=== PATIENT | male | born 1990 | race Caucasian/White ===

== ENCOUNTER 2019-06-21 15:58 | Emergency (ER) | payer SELFPAY ==
[2019-06-21 16:06] VITALS: BP 112/84
[2019-06-21] MEDS ORDERED: PENICILLIN V POTASSIUM 500 MG TABLET PO ONE (16:17)
[2019-06-21] MEDS ORDERED: OXYCODONE-ACETAMINOPHEN 5-325 MG TABLET PO ONE (16:19)
--- NOTE | 2019-06-21 16:21 | ER Document Report ---
HPI - HPI Time Seen by Provider: 06/21/19 16:09 Pain Level: 4 Notes: 28-year-old male patient presenting to the emergency department chief complaint of left upper dental pain. Patient reports he continues to have drainage from the area. He denies any facial swelling. Denies fever. He is currently undergoing treatment for substance abuse at [facility]. He states that they were unable to give him any medication unless he came to the emergency department for treatment first. Past Medical History - General Information source: Patient - Social History Smoking Status: Current Some Day Smoker Frequency of alcohol use: None Drug Abuse: Methamphetamine Family History: Reviewed & Not Pertinent Patient has suicidal ideation: No Patient has homicidal ideation: No - Medical History Medical History: Negative Surgical Hx: Negative Vertical Provider Document - CONSTITUTIONAL Notes: PHYSICAL EXAMINATION: GENERAL: Well-appearing, well-nourished and in no acute distress. HEAD: Atraumatic, normocephalic. EYES: Pupils equal round extraocular movements intact, conjunctiva are normal. ENT: Nares patent, erythema and swelling noted to left upper gumline, no isaac abscess, no evidence of Steve's angina, no trismus. NECK: Normal range of motion LUNGS: No respiratory distress Musculoskeletal: Normal range of motion NEUROLOGICAL: Normal speech, normal gait. PSYCH: Normal mood, normal affect. SKIN: Warm, Dry, normal turgor, no rashes or lesions noted. Course - Re-evaluation Re-evalutation: Presentation is most consistent with likely an infected tooth. Airway is patent. Vitals within normal limits. Patient is able swallow without any difficulty. There is no significant facial swelling. No evidence of Steve angina, apical abscess, or airway obstruction. Patient will be started on antibiotics. I've instructed to follow-up with dentistry as earliest ability for definitive management. At this time will discharge with return precautions and follow-up recommendations. Verbal discharge instructions given a the bedside and opportunity for questions given. Medication warnings reviewed. Patient is in agreement with this plan and has verbalized understanding of return precautions and the need for primary care follow-up in the next 24-72 hours. - Vital Signs Vital signs: Temp Pulse Resp BP Pulse Ox 97.6 F 98 112/84 98 06/21/19 16:03 06/21/19 16:03 06/21/19 16:03 06/21/19 16:03 Discharge - Discharge Clinical Impression: Dental infection Condition: Stable Disposition: HOME, SELF-CARE Additional Instructions: Please take medication as prescribed. [facility] should have this medication to give you. Take Tylenol or ibuprofen for pain. Follow-up with a dentist as soon as you are done with your detox center treatment. Prescriptions: Amoxicillin Trihydrate [Amoxil 500 mg Capsule] 500 mg PO TID #30 cap Referrals: LOCALMD,NO [NO LOCAL MD] - Follow up as needed
== END 2019-06-21 16:27 | disposition home or self-care (01) ==
LOC: ER 15:58
DX: K04.7 Periapical abscess without sinus (principal); K08.89 Other specified disorders of teeth and supporting structures; F15.10 Other stimulant abuse, uncomplicated; F17.200 Nicotine dependence, unspecified, uncomplicated
CPT/HCPCS: 99282